=== PATIENT | female | born 1955 | race Caucasian/White ===

== ENCOUNTER 2018-12-05 19:14 | Observation (INO) ==
[2018-12-05] MEDS ORDERED: ASPIRIN PO ONE (19:24)
[2018-12-05] MEDS ORDERED: NITROGLYCERIN TOP ONE (19:36)
[2018-12-05] MEDS ORDERED: MORPHINE IV ONE (19:39)
[2018-12-05] MEDS ORDERED: LOPRESSOR 10 MG in NS 50 ML IV ONE (19:41)
--- NOTE | 2018-12-05 19:51 | Diag Imaging Result Doc PS360 ---
EXAM: CHEST-2 VIEWS 12/05/2018 HISTORY: chest pain TECHNIQUE: PA and lateral chest COMMENT: There is cardiomegaly. The pulmonary edema which was present at the time the previous study of 07/23/2018 has largely resolved. IMPRESSION: Cardiomegaly. Electronically signed by Xander Mott 12/05/2018 7:49 PM
[2018-12-05 19:52] LABS: BASO# 0.03 X1000 (0.0-0.2); BASO% 0.6 % (0.0-0.8); EOS# 0.28 X1000 (0.0-0.7); EOS% 5.5 % (0.0-10.0); HEMATOCRIT 44.1 % (37.0-47.0); HEMOGLOBIN 14.8 g/dL (12.0-16.0); LYMPH# 1.67 X1000 (1.2-3.4); LYMPH% 32.9 % (20.5-51.1); MCH 30.5 PG (27-31); MCHC 33.6 g/dL (33-37); MCV 90.7 FL (81-99); MONO# 0.44 X1000 (0.11-0.59); MONO% 8.7 % (1.7-9.3); MPV 10.6 FL (7.4-10.4); NEUT# 2.65 X1000 (1.4-6.5); NEUT% 52.3 % (42.2-75.2); PLT 177 X1000 (130-400); RBC 4.86 XMIL (4.2-5.4); RDW 14.6 % (11.5-14.5); WBC 5.07 X1000 (4.8-10.8)
[2018-12-05 20:16] LABS: AGAP 10; ALB/GLOB RATIO 1.3; ALBUMIN 4.1 g/dL (3.5-5.0); ALKALINE PHOSPHATASE 92 U/L (32-104); BUN 15 mg/dL (8-22); CALCIUM 9.4 mg/dL (8.8-10.2); CHLORIDE 101 mmol/L (98-107); COSMO 287; CREATININE 0.8 mg/dL (0.5-0.9); ESTIMATED GFR > 60; GLUCOSE 86 mg/dL (70-104); GOT 23 U/L (10-30); GPT 19 U/L (10-36); POTASSIUM 3.6 mmol/L (3.5-5.1); SODIUM 144 mmol/L (136-145); TCO2 33 mmol/L (25-35); TOTAL PROTEIN 7.2 g/dL (6.3-8.3)
--- NOTE | 2018-12-05 22:49 | PROVIDER DOCUMENTATION ---
This chart was entered by Bhavik Cunha Scribe, acting as scribe for Ministerio Soto MD. HPI-Chest Pain - General Stated Complaint: cp Time Seen by Provider: 12/05/18 19:19 Source: patient Allergies/Adverse Reactions: Patient Allergies Allergy/AdvReac Type Severity Reaction Status Date / Time codeine Allergy RASH Verified 07/23/18 07:48 Home Medications: Home Medication List Medication Instructions Recorded Confirmed Last Taken Type Fluoxetine HCl 20 mg PO QHS 03/05/18 12/05/18 03/13/18 History Levothyroxine [Synthroid] 137 mcg PO DAILY 03/05/18 12/05/18 03/13/18 History Omeprazole 1 tab PO QHS 03/05/18 12/05/18 03/13/18 History Pregabalin [Lyrica] 150 mg PO BID 03/05/18 12/05/18 Unknown History Pramipexole [Mirapex] 1 tab PO QHS 07/23/18 12/05/18 Unknown History ATORVAstatin [Lipitor] 40 mg PO QHS #90 tab 07/26/18 12/05/18 Unknown Rx Amiodarone [Cordarone] 400 mg PO BID #90 tab 07/26/18 12/05/18 Unknown Rx Apixaban [Eliquis] 5 mg PO BID #120 tab 07/26/18 12/05/18 Unknown Rx Aspirin 81 mg PO DAILY chewtab 07/26/18 12/05/18 Unknown Rx Carvedilol [Coreg] 12.5 mg PO BID #120 tab 07/26/18 12/05/18 Unknown Rx Clonidine [Catapres] 0.1 mg PO BID #90 tab 07/26/18 12/05/18 Unknown Rx Furosemide [Lasix] 40 mg PO DAILY #90 tab 07/26/18 12/05/18 Unknown Rx Potassium Chloride E.r. [Klor-Con] 20 meq PO QHS #90 tab 07/26/18 12/05/18 U nknown Rx Clonazepam 0.5 mg PO BID 12/05/18 12/05/18 Unknown History Hydrocodone Bit/Acetaminophen 1 tab PO TID PRN 12/05/18 12/05/18 Unknown History [Hydrocodon-Acetaminoph 7.5-325] - History of Present Illness-CP Nature of Presenting Problem: Pt is a 63 y/o F presents to the ED with intermittent chest pressure that has been all day today. She reports the pain began in the center of the chest, into her jaw and into left arm. She reports SOB, being sweaty, and nausea. Location: reports: central Chest Pain Radiation: reports: jaw, arms Quality of Pain: reports: pressure Severity in ED: moderate Onset/Duration: this morning Timing: still present Context/Activities at Onset: reports: none Associated Symptoms: reports: diaphoresis, edema, nausea, shortness of breath. denies: abdominal pain, fever/chills, vomiting, weakness Nitro Today/Relief: no nitro taken today Aspirin Treatment Today: no aspirin today Similar Symptoms Previously?: No Recently Seen Here or By Another Healthcare Provider: No Review of Systems - Adult - REVIEW OF SYSTEMS - ADULT Constitutional: denies: chills, fever Eyes: reports: no symptoms reported Ears, Nose, Mouth & Throat: reports: no symptoms reported Cardiovascular: reports: chest pain, edema. denies: orthopnea, palpitations Respiratory: reports: shortness of breath. denies: cough, wheezing Gastrointestinal: reports: nausea. denies: abdominal pain, diarrhea, vomiting Genitourinary: denies: dysuria, discharge Musculoskeletal: reports: no symptoms reported Integumentary: denies: itching, rash Neurological: denies: dizziness/vertigo, headache/migraines Psychiatric: reports: no symptoms reported Endocrine: reports: no symptoms reported Hematologic/Lymphatic: reports: no symptoms reported Allergic/Immunologic: reports: no symptoms reported All Other Systems: Reviewed and Negative Past History - Adult - PAST MEDICAL HISTORY-ADULT Review of Records: reports: Old Records Reviewed, Nursing Assessment Review, Medications Reviewed Major Childhood Illnesses: reports: denies history Cardiovascular: reports: denies history Respiratory: reports: denies history Gastrointestinal: reports: denies history Obstetrical/Gynecological: reports: denies history Genitourinary: reports: denies history Musculoskeletal: reports: denies history Neurological: reports: denies history Psychiatric: reports: denies history Endocrine/Immune: reports: denies history Other Conditions: reports: denies history - PRIOR SURGERIES/PROCEDURES Surgical/Procedure History: reports: reviewed, not pertinent - IMMUNIZATION STATUS Childhood Immunizations: See Nurse Assessment Flu Vaccine: See Nurse Assessment - FAMILY HISTORY Family History: reviewed, not pertinent - SOCIAL HISTORY Smoking: cigarettes, less than 1 pack/day Substance Use: alcohol Alcohol Use Frequency: occasionally Living Situation: family Physical Exam-General - PHYSICAL EXAM-ADULT Initial Vital Signs Reviewed: Yes - CONSTITUTIONAL General Appearance: alert, mild distress (tearing from pain), obese. negative: appears well (ill in appearance) - EYES Eyes: PERRL/EOMI, pink conjunctivae - HEAD, EARS, NOSE, MOUTH & THROAT HENMT: moist mucous membranes, normal ENT inspection, pharynx normal - NECK Neck: non-tender, full range of motion, supple, normal inspection - RESPIRATORY Respiratory: lungs clear, normal breath sounds, no pleuratic chest pain, no respiratory distress, no accessory muscle use - CARDIOVASCULAR Cardiovascular: normal peripheral pulses, regular rate, rhythm, no edema, systolic murmur - GASTROINTESTINAL (ABDOMEN) Abdominal Exam: non tender, soft - MUSCULOSKELETAL Back Exam: normal inspection, no CVA tenderness, no vertebral tenderness Extremity: no pedal edema, no calf tenderness - SKIN Integumentary: normal color, normal turgor, warm/dry - NEUROLOGIC Neurologic: grossly normal, no motor/sensory deficits - HEART Score HEART Score: History: Moderately Suspicious HEART Score: ECG: Normal HEART Score: Age: 45-65 Years HEART Score: Risk Factors for Atherosclerotic Disease: > or = 3 Risk Factors or History of Atherosclerotic Disease HEART Score: Troponin: < or = Normal Limit Total HEART Score:: 4 Progress - PLAN OF CARE/RESULTS Progress/Plan/Lab Results: Vital Signs - 8 hr 12/05/18 19:27 12/05/18 20:04 12/05/18 20:10 Temperature 98.1 F Pulse Rate 75 73 74 Respiratory Rate 18 20 20 Blood Pressure 234/116 222/123 O2 Sat by Pulse Oximetry 96 92 L 92 L 12/05/18 20:13 12/05/18 20:19 12/05/18 20:21 Temperature Pulse Rate 76 74 75 Respiratory Rate 20 21 19 Blood Pressure 210/121 184/92 O2 Sat by Pulse Oximetry 95 92 L 93 L 12/05/18 20:22 12/05/18 20:27 12/05/18 20:30 Temperature Pulse Rate 74 71 69 Respiratory Rate 20 14 19 Blood Pressure 186/99 160/95 O2 Sat by Pulse Oximetry 90 L 93 L 89 L 12/05/18 20:32 12/05/18 20:40 12/05/18 20:42 Temperature Pulse Rate 64 64 65 Respiratory Rate 15 12 19 Blood Pressure 185/88 168/89 O2 Sat by Pulse Oximetry 90 L 93 L 88 L 12/05/18 20:50 12/05/18 20:52 12/05/18 20:54 Temperature Pulse Rate 62 63 64 Respiratory Rate 18 18 19 Blood Pressure 168/89 167/90 O2 Sat by Pulse Oximetry 90 L 89 L 92 L 12/05/18 21:00 12/05/18 21:02 12/05/18 21:10 Temperature Pulse Rate 64 62 65 Respiratory Rate 20 13 14 Blood Pressure 168/84 O2 Sat by Pulse Oximetry 94 L 96 93 L 12/05/18 21:20 12/05/18 21:30 12/05/18 21:32 Temperature Pulse Rate 62 62 63 Respiratory Rate 18 19 18 Blood Pressure 157/80 O2 Sat by Pulse Oximetry 91 L 93 L 92 L 12/05/18 21:40 Temperature Pulse Rate 60 Respiratory Rate 18 Blood Pressure O2 Sat by Pulse Oximetry 92 L Laboratory Results - last 24 hr 12/05/18 12/05/18 12/05/18 19:30 19:30 19:30 WBC 5.07 RBC 4.86 Hgb 14.8 Hct 44.1 MCV 90.7 MCH 30.5 MCHC 33.6 RDW Std Deviation 14.6 H Plt Count 177 MPV 10.6 H Immature Gran % (Auto) 0.0 Neut % (Auto) 52.3 Lymph % (Auto) 32.9 Waldo % (Auto) 8.7 Eos % (Auto) 5.5 Baso % (Auto) 0.6 Immature Gran # (Auto) 0.00 Neut # (Auto) 2.65 Lymph # (Auto) 1.67 Waldo # (Auto) 0.44 Eos # (Auto) 0.28 Baso # (Auto) 0.03 Sodium 144 Potassium 3.6 Chloride 101 Carbon Dioxide 33 Anion Gap 10 BUN 15 Creatinine 0.8 Estimated GFR/1.73 m2 > 60 BUN/Creatinine Ratio 19 Glucose 86 Calculated Osmolality 287 Calcium 9.4 Total Bilirubin 0.60 AST 23 ALT 19 Alkaline Phosphatase 92 Troponin T [id number] Pept 1224 H Total Protein 7.2 Albumin 4.1 Globulin 3.1 Albumin/Globulin Ratio 1.3 12/05/18 19:30 WBC RBC Hgb Hct MCV MCH MCHC RDW Std Deviation Plt Count MPV Immature Gran % (Auto) Neut % (Auto) Lymph % (Auto) Waldo % (Auto) Eos % (Auto) Baso % (Auto) Immature Gran # (Auto) Neut # (Auto) Lymph # (Auto) Waldo # (Auto) Eos # (Auto) Baso # (Auto) Sodium Potassium Chloride Carbon Dioxide Anion Gap BUN Creatinine Estimated GFR/1.73 m2 BUN/Creatinine Ratio Glucose Calculated Osmolality Calcium Total Bilirubin AST ALT Alkaline Phosphatase Troponin T 0.015 [id number] Pept Total Protein Albumin Globulin Albumin/Globulin Ratio Orders Category Date Time Status Cardiac Monitoring DIRECTED Care 12/05/18 19:40 Active cxr [CHEST-2 VIEWS] [RAD] Stat Exams 12/05/18 19:25 Completed CBC WITH ELECTRONIC DIFF [HEME] Stat Lab 12/05/18 19:30 Completed COMPREHENSIVE METABOLIC PANEL [CHEM] Stat Lab 12/05/18 19:30 Completed PRO B-NATRIURETIC PEPTIDE Stat Lab 12/05/18 19:30 Completed TROPONIN T Stat Lab 12/05/18 19:30 Completed TROPONIN T Stat Lab 12/05/18 22:17 Ordered Aspirin Med 12/05/18 19:24 Discontinued 325 mg PO NOW ONE Metoprolol [Lopressor] 10 mg Med 12/05/18 19:41 Discontinued 0.9% Sodium Chloride Inj [Ns] 50 ml IV NOW Morphine Med 12/05/18 19:39 Discontinued 8 mg IV NOW ONE Nitroglycerin Med 12/05/18 19:36 Discontinued 1.5 inch TOP NOW ONE Transfer/Admit Order [TRANSFER] Routine Transfer 12/05/18 22:37 Ordered Result Diagrams: 12/05/18 19:30 12/05/18 19:30 - REASSESSMENT Reassessment #1 Time Reassessed: 21:01 Status: improving (chest pain improved. BP improved) Reassessment #2 Time Reassessed: 22:05 Status: improving (chest pain resolved, BP 150/91) - EKG 1 Time of EKG reading by physician:: 19:24 EKG Read and Signed by:: Ministerio Arzate EKG Interpretation (*Must complete 3 of following elements*): Abnormal Rate: 75 Rhythm: NSR Comments: T wave abnormality, consider lateral ischemia - CONSULTS/PCP/HOSPITALIST Notification #1 *Consult/PCP/Hospitalist*: Dr. Charli chappell Time Discussed: 22:03 Consult Disposition: Admit (Hx, PE and patient care discussed, accepted.) Departure - Departure Date of Disposition Decision: 12/05/18 Time of Disposition Decision: 22:03 DIAGNOSIS: Hypertensive emergency Chest pain Qualifiers: Chest pain type: unspecified Qualified Code(s): R07.9 - Chest pain, unspecified Disposition: ADMITTED INPATIENT 09 Certified Medical Emergency: Emergent Condition: Stable Referrals and Follow-Ups: Horacio Hammond MD [Primary Care Provider] - - Critical Care Note This patient required my direct & personal management of CC.: No Attestation - Physician/ MADHU Attestation Patient care was provided by Advanced Practice Provider:: No The physician spent face to face time with patient:: Yes Advanced Practice Provider documentation review:: Supervising physician onsite and consulted in the evaluation and care of this patient. The physician did have a face to face encounter with the patient. This chart was documented by the indicated scribe, (Bahvik Cunha Scribe) and accurately reflects the services I performed and decisions made by me, Ministerio Soto MD, as attested by the provider's signature.
--- NOTE | 2018-12-05 22:54 | HISTORY AND PHYSICAL ---
PRIMARY CARE PHYSICIAN: Dr. Blair Hammond. CHIEF COMPLAINT: Chest pain. HISTORY OF PRESENTING ILLNESS: This is a 63-year-old female with a history of hypertension, DVT, low back pain, hyperlipidemia and anxiety and panic attacks who had presented to emergency department 1-day history of having chest pressure. She states that she did not know if she was having a panic attack or not. She had a cardiac workup several months ago. However due to presenting symptoms it was thought that will place for observation further evaluation management. At time my examination patient denied any headache, fever, chills, nausea, vomiting, diarrhea, hemoptysis, melena, weight changes but still complained of some chest pressure. PAST MEDICAL HISTORY: Includes hypertension, DVT, low back pain, hyperlipidemia , anxiety, panic attacks. PAST SURGICAL HISTORY: Tonsillectomy. ALLERGIES: Codeine. CURRENT MEDICATIONS: Include amiodarone 400 mg p.o. b.i.d., Eliquis 5 mg p.o. b.i.d., aspirin 81 mg p.o. daily, Lipitor 40 mg p.o. at bedtime, Coreg 12.5 mg p.o. b.i.d., clonazepam 0.5 mg b.i.d. Clonidine 0.1 mg p.o. b.i.d., fluoxetine 20 mg p.o. at bedtime, Lasix 40 mg p.o. daily, [place] 7.5 mg p.o. t.i.d., levothyroxine 137 mcg p.o. daily, omeprazole 20 mg p.o. at bedtime, Mirapex 0.25 mg 1 p.o. daily, pregabalin 150 mg p.o. b.i.d. SOCIAL HISTORY: Fifty pack years history of smoking. Denies any history of alcohol or illicit drug use. FAMILY HISTORY: No history of coronary disease. REVIEW OF SYSTEMS: Fourteen point review of systems is as in HPI. Other systems negative. PHYSICAL EXAMINATION: GENERAL: Cooperative friendly female, she is resting more comfortably now. VITAL SIGNS: Temperature 98.1 degrees, pulse 74 , respiration 19, blood pressure initially was 234/116 repeat 184/92. HEENT: Atraumatic, normocephalic. Extraocular movements intact. PERRLA. NECK: No masses. CHEST: Clear to auscultation. CARDIOVASCULAR: Regular rate and rhythm. ABDOMEN: Soft, positive bowel sounds. EXTREMITIES: No edema. NEURO: She is awake, alert, oriented x3. : No bladder distention. SKIN: Warm. LABORATORIES AND STUDIES: WBCs 5.07, hemoglobin 14.8, hematocrit 44.1, platelets 177,000, sodium 144, potassium 3.6, chloride 101, CO2 is 33, BUN is 15, creatinine 0.8, glucose 86, troponin 0.015. Chest x-ray reveals cardiomegaly. ASSESSMENT: 63-year-old female with history of hypertension, deep vein thrombosis, low back pain, hyperlipidemia, anxiety disorder who had presented to emergency department with 1-day history of having chest pressure. She was evaluated in the emergency department. Due to her presenting symptoms will place her for observation further evaluation management . 1. Chest pain. 2. Panic attack. 3. Hypertension. 4. Chronic low back pain. PLAN: 1. We will admit patient to medical floor with telemetry. 2. Continue with cardiac workup, check EKG, serial cardiac enzymes, have patient continue aspirin, will use sublingual nitroglycerin p.r.n. chest pain. 3. Restart her anxiolytic agent. 4. Monitor blood pressure closely. 5. Continue with pain control. 6. Put patient on DVT prophylaxis SCD. 7. Will continue follow and reassess and make further recommendation based on patient's clinical course. cc: Charli Herrmann MD MTDD
[2018-12-05] MEDS ORDERED: NORCO-7.5 PO PRN (23:34)
[2018-12-05] MEDS ORDERED: TYLENOL PO PRN (23:34)
[2018-12-05] MEDS ORDERED: ZOFRAN IV PRN (23:34)
[2018-12-06] MEDS ORDERED: SYNTHROID PO SCH (07:00)
[2018-12-06] MEDS ORDERED: PRILOSEC PO SCH ×2 (07:00→21:00)
[2018-12-06] MEDS: KLONOPIN PO SCH ×2 (07:02→09:12)
--- NOTE | 2018-12-06 07:53 | EKG Report ---
Test Performed on : 12/05/2018 7:24:30 PM Test Reason : CHEST PAIN Blood Pressure : / mmHG Vent. Rate : 075 BPM Atrial Rate : 075 BPM P-R Int : 172 ms QRS Dur : 092 ms QT Int : 412 ms P-R-T Axes : 051 012 090 degrees QTc Int : 460 ms Normal sinus rhythm. T wave abnormality, consider lateral ischemia Abnormal ECG When compared with ECG of 25-JUL-2018 07:48, No significant change was found Unconfirmed Result
[2018-12-06] MEDS ORDERED: COREG PO SCH (09:00)
[2018-12-06] MEDS ORDERED: CATAPRES PO SCH (09:00)
[2018-12-06] MEDS ORDERED: LYRICA PO SCH (09:00)
[2018-12-06] MEDS ORDERED: ELIQUIS PO SCH (09:00)
[2018-12-06] MEDS ORDERED: ASPIRIN PO SCH ×2 (09:00)
[2018-12-06] MEDS ORDERED: LASIX PO SCH (09:00)
[2018-12-06] MEDS ORDERED: CORDARONE PO SCH (09:00)
--- NOTE | 2018-12-06 10:11 | PROGRESS NOTE ---
DATE: 12/06/2018 SUBJECTIVE: Ms. Deidre Kent, a 63-year-old with history of hypertension, DVT, low back pain, hyperlipidemia, anxiety, panic attacks, presented to the emergency department with a 1-day history of having chest pressure. Describes it as the middle of her chest. She did not know if she was having a panic attack and not, so was admitted for observation and to rule out cardiac pain. EKG and serial cardiac enzymes did not look remarkable. She is in normal sinus rhythm. Nonspecific T- waves in V4 through V6. Otherwise, appears unremarkable. OBJECTIVE: General: Exam today, she was sitting up. Says she just feels very weak. No chest pain at this time. Vitals: Temperature 97.6 degrees, pulse 67, respirations 20, blood pressure 161/78. Eyes: Pupils are equal and round. Lungs: Are clear in all lung barker. Cardiovascular: Regular rhythm and rate without murmur or S3. Abdomen: Soft. Skin: Warm and dry. LABORATORY: White count 5070, hematocrit 44, platelet count 177,000. Sodium 144, potassium 3.6, chloride 101, BUN 15, creatinine 0.8. ProBNP is 1224. Albumin is 4.1. The patient on EKG has some cardiomegaly, otherwise unremarkable. No infiltrates. ASSESSMENT AND PLAN: So we will see. So far, enzymes look good. I will see if we need to start her on a diet or whether she needs a cardiac study. cc: Harjit Houston MD
[2018-12-06 15:52] VITALS: BP 139/63
--- NOTE | 2018-12-06 18:20 | DISCHARGE SUMMARY ---
ADMISSION DATE: 12/06/2018 DISCHARGE DATE: 12/06/[address] Blair Hammond. This is a 63-year-old with history hypertension, DVT, lower back pain, hyperlipidemia, anxiety, panic attacks, presented to the emergency room with 1-day history of having chest pressure. She did not know if she was having panic attack or not but was concerned. Had cardiac workup several months ago, presenting symptoms and cardiac workup apparently unremarkable. She has history of hypertension, DVT, lower back pain, hyperlipidemia, anxiety, panic attacks. Surgical history tonsillectomy. Her cardiac enzymes were negative. Her EKG was completely unremarkable. The nature of her chest pain did not sound at all consistent with angina. She describes more of sharp pain and somewhat pleuritic in nature. She has a history hypertension, deep venous thrombosis, lower back pain, hyperlipidemia, anxiety so I put her on a healthy heart diet, she was able to eat, had no further chest pain. Troponin and CPK were negative and mentioned EKG was completely unremarkable so let her go home at her request. Will discharge her on her home medicines. She is on Lipitor 40 mg a day, amiodarone 400 mg b.i.d., Eliquis 5 mg b.i.d., aspirin 81 mg a day, Coreg 12.5 b.i.d., clonazepam 0.5 mg b.i.d., Catapres 0.1 mg b.i.d., fluoxetine 20 mg at bedtime, Lasix 40 mg a day, she has hydrocodone she takes t.i.d. p.r.n., Synthroid 137 mcg daily, omeprazole 1 at bedtime, Klor-Con 20 mEq at bedtime, Mirapex 1 tablet at bedtime and Lyrica 150 mg b.i.d. I believe she is on the amiodarone for atrial fibrillation as well taking Eliquis and aspirin for the same. 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 cc: Harjit Houston MD
[2018-12-06] MEDS ORDERED: LIPITOR PO SCH (21:00)
[2018-12-06] MEDS ORDERED: MIRAPEX PO SCH (21:00)
[2018-12-06] MEDS ORDERED: PROZAC PO SCH (21:00)
== END 2018-12-06 18:52 | disposition home or self-care (01) ==
LOC: ED 19:14 → EDIPHOLD 19:14 → SUATTDRO 12-06 02:05 → 4N 12-06 05:45
PROVIDERS: ATTEND Emergency Medicine
CPT/HCPCS: 71020; 71046; 80053; 82550; 83880; 84484; 85025; 93005; 96365; 96375; 99285; A9270; J2270